=== PATIENT | male | born 1975 | race Caucasian/White ===

== ENCOUNTER 2017-03-23 07:49 | Emergency (ER) | payer BC ==
[2017-03-23 07:54] VITALS: PULSE 78; TEMP 97.7; BMI 32.3
[2017-03-23] MEDS ORDERED: SODIUM CHLORIDE 1,000 ML IV STA (08:42)
--- NOTE | 2017-03-23 08:46 | PDOC ---
History of Present Illness - General Chief Complaint: Pain Stated Complaint: RT SIDE ABD PAIN Time Seen by Provider: 03/23/17 08:36 History Source: Patient Exam Limitations: No Limitations - History of Present Illness Travel History: No Initial Comments: 03/23/17 08:42 42 yr male history of kidney stone 20 yrs ago. Pt states last night had some RLQ pain from flank to groin with urinary urgency. Pt states the pain has improved then came back this am. Pt noted dark urine. no fever no chest pain no chills no urinary burning or discharge. Past History - Past Medical History Allergies/Adverse Reactions: Allergies Allergy/AdvReac Type Severity Reaction Status Date / Time No Known Allergies Allergy Verified 03/23/17 07:54 Home Medications: Ambulatory Orders Oxycodone HCl/Acetaminophen [Percocet 5-325 mg Tablet] 1 tab PO Q6H PRN #8 tablet MDD 4 03/23/17 Tamsulosin HCl [Flomax] 0.4 mg PO HS #14 cap.er.24h 03/23/17 Kidney Stones: Yes Other medical history: MS-- NO PROBLEMS X 10 YRS - Psycho/Social/Smoking Cessation Hx Anxiety: No Suicidal Ideation: No Smoking History: Never smoked Hx Alcohol Use: No Drug/Substance Use Hx: No Substance Use Type: None Review of Systems - Review of Systems Constitutional: No: Symptoms Reported HEENTM: No: Symptoms Reported Respiratory: No: Symptoms reported Cardiac (ROS): No: Symptoms Reported ABD/GI: No: Symptoms Reported : Yes: Symptoms Reported, Flank Pain, Urgency Musculoskeletal: No: Symptoms Reported Integumentary: No: Symptoms Reported Neurological: No: Symptoms reported *Physical Exam - Vital Signs Last Vital Signs Temp Pulse Resp BP Pulse Ox 97.7 F 78 20 153/78 100 03/23/17 07:50 03/23/17 07:50 03/23/17 07:50 03/23/17 07:50 03/23/17 07:50 - Physical Exam General Appearance: Yes: Nourished, Appropriately Dressed HEENT: positive: EOMI, ABNER, Normal ENT Inspection, TMs Normal, Pharynx Normal Neck: positive: Supple. negative: Tender Respiratory/Chest: positive: Lungs Clear, Normal Breath Sounds Cardiovascular: positive: Regular Rhythm, Regular Rate Gastrointestinal/Abdominal: positive: Normal Bowel Sounds, Soft. negative: Tender Male Genitalia: positive: normal genitalia. negative: discharge, testicular tenderness Rectal Exam: positive: deferred Musculoskeletal: positive: Normal Inspection Extremity: positive: Normal Capillary Refill, Normal Inspection, Normal Range of Motion Integumentary: positive: Normal Color, Dry, Warm Neurologic: positive: Fully Oriented, Alert, Normal Mood/Affect, Normal Response , Motor Strength 03/18 ED Treatment Course - LABORATORY CBC & Chemistry Diagram: 03/23/17 08:35 03/23/17 08:35 - Consult/PCP Time Called: 10:15 ( ) Medical Decision Making - Medical Decision Making 03/23/17 08:44 cc: right lower abd pain to flank and right back urinary urgency pt noted dark urine feels better lying flat worse with sitting no pain now while lying flat will r/o renal colic, UTI, appendicitis pt refused pain meds at this time states he does not have any pain. will continue to monitor, will give IVF. 03/23/17 08:53 03/23/17 10:51 paged second time 03/23/17 10:56 spoke to case discussed and would like to see this week in the office and place on flomax 0.4mg nightly *DC/Admit/Observation/Transfer Diagnosis at time of Disposition: Kidney stone on right side - Discharge Dispostion Disposition: HOME Condition at time of disposition: Improved - Prescriptions Prescriptions: Tamsulosin HCl [Flomax] 0.4 mg PO HS #14 cap.er.24h Oxycodone HCl/Acetaminophen [Percocet 5-325 mg Tablet] 1 tab PO Q6H PRN #8 tablet MDD 4 PRN Reason: Severe Pain - Referrals Referrals: Augie Grant MD [Staff Physician] - Edison Joseph MD [Staff Physician] - Leila Abdi MD [Staff Physician] - - Patient Instructions Additional Instructions: drink pleanty of water strain all urine with the filter take Flomax at night this will help you pass the stone take motrin 800mg every 6hrs for pain as needed take percocet for severe pain follow with the urologist call today to make appointment for this week follow with the grocery worker Dr. Joseph to follow up on liver enzymes being elevated follow with Dr. Abdi for primary care Return to ER for any worsening symptoms
[2017-03-23 08:47] LABS: BASOPHIL 0.7 % (0-2.0); EOSINOPHIL 2.5 % (0-4.5); MCH 29.2 pg (25.7-33.7); MCHC 34.1 g/dl (32.0-35.9); MEAN CELL VOLUME 85.8 fl (80-96); MEAN PLT VOLUME 9.1 fl (7.5-11.1); NEUTROPHILS 56.4 % (42.8-82.8); PLATELET COUNT 221 K/MM3 (134-434); RDW 13.3 % (11.9-15.9); WHITE BLOOD COUNT 7.8 K/mm3 (4.0-10.0)
[2017-03-23 08:49] LABS: URINE APPEARANCE CLOUDY; URINE BILIRUBIN NEGATIVE (NEGATIVE); URINE COLOR YELLOW; URINE GLUCOSE (UA) NEGATIVE (NEGATIVE); URINE KETONE NEGATIVE (NEGATIVE); URINE LEUK ESTERASE NEGATIVE (NEGATIVE); URINE NITRITE NEGATIVE (NEGATIVE); URINE UROBILINOGEN NEGATIVE E.U./dl (0.2-1.0)
[2017-03-23 08:50] LABS: URINE BLOOD 3+ (NEGATIVE); URINE PROTEIN 1+ (NEGATIVE)
[2017-03-23 08:56] LABS: URINE MUCUS RARE; URINE RBC 3966 /hpf (0-3); URINE WBC 60 /hpf (3-5)
[2017-03-23 09:04] LABS: ALBUMIN 4.1 g/dl (3.4-5.0); ANION GAP 11 (8-16); CALCIUM 8.7 mg/dL (8.5-10.1); CO2 26 mmol/L (21-32); GLUCOSE,RANDOM 110 mg/dL (74-106)
[2017-03-23 09:09] LABS: BILIRUBIN,TOTAL 0.6 mg/dL (0.2-1.0); COCKROFT - GAULT 118.12; CREATININE 1.2 mg/dL (0.7-1.3); SGOT/AST 57 U/L (15-37); SGPT/ALT 108 U/L (12-78); TOT PROT 7.6 g/dl (6.4-8.2)
[2017-03-23 09:10] LABS: ALK PHOS 82 U/L (45-117)
[2017-03-23 11:30] VITALS: BP 145/80
== END 2017-03-23 11:30 | disposition home or self-care (01) ==
LOC: JER 07:49
PROC: 3E0337Z Introduction of Electrolytic and Water Balance Substance into Peripheral Vein, Percutaneous Approach (ICD-10-PCS; principal; 2017-03-23)
DX: N20.0 Calculus of kidney (principal)
CPT/HCPCS: 36415; 74176; 80053; 80074; 81003; 81015; 83690; 85025; 87086; 99284-25